=== PATIENT | female | born 1935 | race Caucasian/White ===

== ENCOUNTER 2017-04-05 10:43 | Emergency (ER) | payer MEDICARE, BC ==
[~2017-04-05 10:43] MED LIST: ALPH0.15 EACH EYE; AMLO10 PO; BONI150T PO; CHOL1CAP2 PO; CIPR500T4 PO; DOXY100T PO; FAMO20TA2 PO; HYDR7.5S PO; LORA0.5T PO; METO50TA PO; MOBI7.5T PO; PRED20 PO; XYZA5TAB2 PO
[2017-04-05 10:57] VITALS: BP 127/66; PULSE 92; RESP 20; TEMP 98.2; O2SAT 99
[2017-04-05] MEDS ORDERED: AMLO5 PO (11:12)
[2017-04-05] MEDS ORDERED: TYLETAB34 PO (11:12)
[2017-04-05] MEDS ORDERED: VESI10TA PO (11:16)
[2017-04-05] MEDS ORDERED: ALPH0.1S EACH EYE (11:16)
[2017-04-05] MEDS ORDERED: ATOR10TA15 PO (11:16)
[2017-04-05] MEDS ORDERED: FAMO20TA2 PO (11:16)
[2017-04-05] MEDS ORDERED: MELO7.5T4 PO (11:16)
[2017-04-05] MEDS ORDERED: LEVOTAB PO (11:16)
[2017-04-05] MEDS ORDERED: KETOROLAC TROMETHAMINE 60 MG/2 ML (IM) VIAL IM ONE (11:30)
--- NOTE | 2017-04-05 11:31 | PD ---
HPI . Right leg swelling Chief Complaint: Edema Time Seen by Provider: 11:21 Travel History International Travel<30 days: No Contact w/Intl Traveler<30days: No Traveled to known affect area: No History of Present Illness HPI Patient presents with a chief complaint of a swollen right lower leg. Onset was 3 days ago. Symptoms have been persistent. She subsequently contacted her doctor who instructed her to come to the emergency department wasn't possible DVT. She is complaining with some calf soreness which is exacerbated by walking. She rates her current pain as 0/10. 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 She states that she has been on 5 courses of prednisone with temporary, incomplete relief of her pain. PFSH Past Medical History Arthritis: Yes Cancer: No Cardiovascular Problems: Yes (MITRAL VALVE PROLAPSE) High Cholesterol: Yes Chest Pain: Yes Diabetes: No Diminished Hearing: No Endocrine: Yes Gastrointestinal Disorders: Yes GERD: Yes Glaucoma: Yes (BILATERAL) Genitourinary: No Hypertension: Yes Immune Disorder: No Musculoskeletal: Yes Neurologic: No Psychiatric: No Reproductive: No Respiratory: No Immunizations Current: Yes Thyroid Disease: Yes (GOITER) Influenza Vaccination: Yes ?: Not Menopausal: Yes : 3 Para: 3 Tubal Ligation: Yes Past Surgical History Oral Surgery: Yes (WISDOM TEETH, tonsilectomy) Tonsillectomy: Yes Other Surgery: Yes (LESIONS REMOVED FROM BACK) Social History Alcohol Use: Yes (OCC) Tobacco Use: No Substance Use: No Allergies-Medications (Allergen,Severity, Reaction): Coded Allergies: Sulfa (Sulfonamide Antibiotics) (Unverified Allergy, Severe, HIVES, ) codeine (Unverified Allergy, Severe, NAUSEA, 03/01/17) Reported Meds & Prescriptions Reported Meds & Active Scripts Active Reported Atorvastatin (Atorvastatin Calcium) 10 Mg Tab 10 Mg PO HS Vesicare (Solifenacin) 10 Mg Tab 10 Mg PO DAILY Meloxicam 7.5 Mg Tab 7.5 Mg PO DAILY Levocetirizine 5 Mg Tab 5 Mg PO DAILY Famotidine 20 Mg Tab 20 Mg PO DAILY Alphagan P Opth Drops (Brimonidine Tartrate) 0.1% Soln 1 Drop EACH EYE BID Tylenol-Codeine #3 (Acetaminophen-Codeine) 300-30 mg Tab 1 Tab PO Q8HR PRN Norvasc (Amlodipine Besylate) 5 Mg Tab 5 Mg PO DAILY Review of Systems Except as stated in HPI: all other systems reviewed are Neg Cardiovascular: No: Chest Pain or Discomfort Respiratory: No: Shortness of Breath Gastrointestinal: No: Nausea Musculoskeletal: Positive: Myalgias, Arthralgias, Edema, No: Limited ROM Physical Exam Narrative GENERAL: Pleasant, elderly woman who looks younger than her stated age. She is in no acute distress. SKIN: Redness to the skin of her right lower extremity. Skin temperature feels equal. HEAD: Normocephalic/atraumatic. EYES: Pupils are equal. Extraocular movements are intact. NECK: Full range of motion with no apparent pain. CARDIOVASCULAR: Normal rate. RESPIRATORY: Nonlabored. MUSCULOSKELETAL: Diffuse calf tenderness which is very mild. She also has visible arthritic changes in her fingers. NEUROLOGICAL: Awake and alert and fully oriented. Numerous are intact. Full muscle strength of all 4 extremities. PSYCHIATRIC: Appropriate mood and affect. Data Data Last Documented VS Vital Signs Date Time Temp Pulse Resp B/P (MAP) Pulse Ox O2 Delivery O2 Flow Rate FiO2 04/05/17 12:42 77 18 117/61 (79) 99 Room Air 04/05/17 10:57 98.2 Orders Orders Us Leg Venous Doppler (04/05/17 11:24) Ketorolac Inj (Toradol Inj) (04/05/17 11:30) MDM Medical Decision Making Medical Screen Exam Complete: Yes Emergency Medical Condition: Yes Differential Diagnosis My differential diagnosis of a swollen extremity includes but is not limited to superficial phlebitis, DVT, cellulitis, arthritis, fluid and electrolyte problem Narrative Course This patient presents with swelling of her right lower extremity. This is concerning for DVT. Ultrasound is pending. Last Impressions Lower Extremity Ultrasound 04/05/17 1124 Signed Impressions: Service Date/Time: Wednesday, April 05, 2017 12:15 - CONCLUSION: 1. Negative for deep venous thrombosis. Tucker's cyst measuring up to 6.2 x 1.5 x 1.2 cm. Fluid collection in the medial calf extending over a length about 8.6 cm with a thickness of about 1.4 cm. Jason Leblanc MD Diagnosis Primary Impression: Right leg swelling Additional Impression: Tucker cyst Qualified Codes: M71.21 - Synovial cyst of popliteal space [Tucker], right knee Patient Instructions: Bakers Cyst (DC), General Instructions Med/Other Pt SpecificInfo: No Change to Meds Disposition: 01 DISCHARGE HOME Condition: Stable Mary Kay Friedman MD Apr 05, 2017 11:31
[2017-04-05 12:42] VITALS: BP 117/61; PULSE 77; RESP 18; O2SAT 99
--- NOTE | 2017-04-05 12:52 | RADRPT ---
EXAM DATE/TIME: 04/05/2017 12:15 [facility] COMPARISON: No previous studies available for comparison. INDICATIONS : Right calf soreness and swelling. MEDICAL HISTORY : Hypercholesterolemia. Hypertension. Gastroesophageal reflux disease. Goiter. Glaucoma. Mirtral hayden ve prolapse. Arthritis. SURGICAL HISTORY : Tubal ligation. Tonsillectomy. Bilateral foot surgery. Lesions removed from back. ENCOUNTER: Initial ACUITY: 3 days PAIN SCORE: 3/10 LOCATION: Right leg. TECHNIQUE: Venous ultrasound of the leg was performed from the inguinal ligament to the proximal calf. Real-kera e, color Doppler and spectral tracing, compression and augmentation techniques were used. FINDINGS: There is normal compressibility of the deep venous system from the inguinal region to the proximal ca lf. No echogenic clot is seen in the lumen of the common femoral, femoral, popliteal, and posterior tibial veins. There is a normal response of the venous system to proximal and distal augmentation an d respiration. CONCLUSION: 1. Negative for deep venous thrombosis. Tucker's cyst measuring up to 6.2 x 1.5 x 1.2 cm. Fluid collec tion in the medial calf extending over a length about 8.6 cm with a thickness of about 1.4 cm. Jason Leblanc MD on April 05, 2017 at 12:49 Board Certified Radiologist. This report was verified electronically.
== END 2017-04-05 13:21 | disposition home or self-care (01) ==
LOC: PHED 10:43
DX: M79.89 Other specified soft tissue disorders (principal); K21.9 Gastro-esophageal reflux disease without esophagitis; I10 Essential (primary) hypertension; R60.0 Localized edema
CPT/HCPCS: 93971; 96372; 99285; J1885